=== PATIENT | male | born 1960 | race Caucasian/White ===

== ENCOUNTER 2019-04-20 11:35 | Observation (INO) ==
[2019-04-20 12:16] LABS: Basophils % 0.6 %; Eosinophils # 0.1 K/mcL (0.0-0.6); Hemoglobin 15.5 g/dL (12.9-16.9); Immature Granulocytes % 0.4 % (0-4); Lymphocytes % 20.9 %; Mean Corpuscular HGB Conc 35.2 g/dL (31.6-35.5); Mean Corpuscular Hemoglobin 33.4 pg (28.0-33.3); Mean Corpuscular Volume 94.8 fL (83.0-100.0); Monocytes # 0.4 K/mcL (0.0-1.3); Monocytes % 7.8 %; Neutrophils # 3.4 K/mcL (1.6-8.9); Platelet Count 180 K/mcL (140-400); Red Blood Count 4.64 M/mcL (4.19-5.50); Red Cell Distribution Width 11.5 % (11.5-14.5); Segmented Neutrophils % 69.3 %; White Blood Count 4.9 K/mcL (4.3-11.1)
[2019-04-20 12:34] LABS: BUN/Creatinine Ratio 18 (6-26); Blood Urea Nitrogen 16 mg/dL (6-20); Calcium 9.4 mg/dL (8.6-10.3); Carbon Dioxide 31 mEq/L (23-29); Chloride 97 mEq/L (98-107); Glucose 148 mg/dL (70-105); Osmolality,Calculated 284 (280-300); Potassium 3.8 mEq/L (3.5-5.1); Sodium 135 mEq/L (136-145); eGFR For African Americans > 60 (> 60); eGFR For Non-African Americans > 60 (> 60)
[2019-04-20] MEDS ORDERED: Ondansetron 4 MG/2 ML VIAL IVP ONE (12:46)
[2019-04-20] MEDS ORDERED: Aspirin 81 MG TAB.CHEW PO STA (13:00)
[2019-04-20] MEDS ORDERED: Acetaminophen 325 MG TABLET PO PRN (14:44)
[2019-04-20] MEDS ORDERED: Naloxone 0.4 MG/ML INJ IVP PRN (14:44)
[2019-04-20] MEDS ORDERED: Ondansetron ODT 4 MG TAB.RAPDIS SL PRN (14:44)
[2019-04-20] MEDS ORDERED: Fluticasone Propionate Nasal 50 MCG/SPRAY BOTTLE NS PRN (14:50)
[2019-04-20] MEDS ORDERED: Dextrose Gel 15 GM/37.5 ML TUBE PO PRN ×2 (14:51)
[2019-04-20] MEDS ORDERED: D5% in Water 1,000 ML IVC PRN (14:51)
[2019-04-20] MEDS ORDERED: *HR* Dextrose 50 % in Water (Syg) 50 ML SYRINGE IVP PRN (14:51)
[2019-04-20 16:49] LABS: Estimated Average Glucose 128 mg/dl
[2019-04-20] MEDS ORDERED: Famotidine 20 MG TABLET PO SCH (21:00)
[2019-04-21 04:02] LABS: Basophils % 0.5 %; Eosinophils # 0.1 K/mcL (0.0-0.6); Eosinophils % 2.2 %; Hematocrit 43.2 % (37.5-50.1); Hemoglobin 14.8 g/dL (12.9-16.9); Immature Granulocytes % 0.3 % (0-4); Lymphocytes # 1.4 K/mcL (0.6-4.6); Lymphocytes % 23.1 %; Mean Corpuscular HGB Conc 34.3 g/dL (31.6-35.5); Mean Corpuscular Hemoglobin 33.3 pg (28.0-33.3); Mean Corpuscular Volume 97.1 fL (83.0-100.0); Monocytes # 0.7 K/mcL (0.0-1.3); Monocytes % 11.6 %; Neutrophils # 3.7 K/mcL (1.6-8.9); Platelet Count 171 K/mcL (140-400); Red Blood Count 4.45 M/mcL (4.19-5.50); Red Cell Distribution Width 11.6 % (11.5-14.5); Segmented Neutrophils % 62.3 %; White Blood Count 5.9 K/mcL (4.3-11.1)
[2019-04-21 04:25] LABS: BUN/Creatinine Ratio 19 (6-26); Blood Urea Nitrogen 19 mg/dL (6-20); Calcium 9.2 mg/dL (8.6-10.3); Carbon Dioxide 31 mEq/L (23-29); Chloride 101 mEq/L (98-107); Cholesterol 129 mg/dL (< 200); Glucose 117 mg/dL (70-105); HDL Cholesterol 32 mg/dL (40-59); LDL Cholesterol,Calculated 78 mg/dL (0-99); Osmolality,Calculated 289 (280-300); Potassium 3.6 mEq/L (3.5-5.1); Sodium 138 mEq/L (136-145); Triglycerides 97 mg/dL (< 150); eGFR For African Americans > 60 (> 60); eGFR For Non-African Americans > 60 (> 60)
[2019-04-21] MEDS ORDERED: Aspirin Enteric Coated 81 MG Tablet PO SCH (09:00)
[2019-04-21] MEDS ORDERED: Famotidine 20 MG TABLET PO SCH (09:00)
[2019-04-21 11:59] VITALS: BP 136/73
[2019-04-22] MEDS ORDERED: Losartan/HCTZ 50-12.5 TABLET PO SCH (09:00)
[2019-04-22] MEDS ORDERED: amLODIPine 5 MG TABLET PO SCH (09:00)
== END 2019-04-21 16:51 | disposition home or self-care (01) ==
LOC: 3BNU 11:35 → EMEROOARM 11:35 → SUATTDRO 13:42 → 3BNU 14:24
PROVIDERS: ADMIT Internal Medicine; ATTEND Nurse Practitioner Acute Care